=== PATIENT | male | born 1970 | race African-American/Black ===

== ENCOUNTER 2018-01-22 17:16 | Observation (INO) ==
[2018-01-22] MEDS ORDERED: ASPIRIN 325 MG TABLET PO STA (20:10)
[2018-01-22 20:25] LABS: Basophils % 0.6 % (0.0-0.8); Eosinophils # 0.2 10*3/uL (0.0-0.87); Eosinophils % 3.8 % (0.00-10.9); Hematocrit 48.1 VOL% (42.0-52.0); Hemoglobin 15.9 GM/DL (14.0-18.0); Immature Granulocytes % 0.2 %; Immature Granulocytes Absolute 0.01 #; Lymphocytes # 2.4 10*3/uL (1.4-4.0); Lymphocytes % 47.6 % (21.2-54.2); Mean Corpuscular HGB Conc 33.1 GM/DL (32-36); Mean Corpuscular Hemoglobin 29 PG (27-34); Mean Corpuscular Volume 87.1 FL (87-102); Mean Platelet Volume 11.7 FL (9.6-12.0); Monocytes # 0.3 10*3/uL (0.11-0.8); Monocytes % 6.3 % (1.7-12.7); Neutrophils # 2.1 10*3/uL (1.4-7.4); Neutrophils % 41.5 % (38.7-73.9); Platelet Count 219 T/CUMM (130-400); Red Blood Count 5.52 MC/CUMM (3.8-5.5); Red Cell Distribution Width 13.3 % (9.3-17.3)
[2018-01-22] MEDS ORDERED: ASPIRIN 325 MG TABLET ONE (20:32)
[2018-01-22 20:43] LABS: Alanine Aminotransferase 33 U/L (16-61); Albumin 4.4 G/DL (3.4-5.0); Alkaline Phosphatase 106 U/L (45-117); Aspartate Amino Transferase 22 U/L (0-37); Bilirubin,Total < 0.39 MG/DL (0.2-1.0); Blood Urea Nitrogen 15 MG/DL (7-18); Calcium 9.6 MG/DL (8.5-10.1); Glucose 89 MG/DL (74-106); Osmolality,Calculated 274.7 MOS/KG (273-304); Potassium 4.2 MMOL/L (3.5-5.1); Sodium 138 MMOL/L (136-145); Total Protein 8.9 G/DL (6.4-8.3)
[2018-01-22 20:46] LABS: Amorphous Crystals,Urine Few /HPF (Few); Apearance,Urine CLEAR (Clear); Bilirubin,Urine Negative (Negative); Blood, Urine Negative (Negative); Glucose,Urine (UA) Negative (Negative); Granular Casts,Urine 1 /LPF (0-1); Ketones,Urine Negative (Negative); Mucus,Urine Occasional /LPF (Occasional); Nitrite,Urine Negative (Negative); Protein,Urine Negative; RBC,Urine <1 /HPF (0-4); Urine Color Straw (Yellow); Urine Specific Gravity 1.012 (1.001-1.035); Urine Urobilinogen < 2.0 EU/DL (0.2-1.0); WBC,Urine <1 /HPF (0-6)
[2018-01-22] MEDS ORDERED: ALUM/MAG/SIMETH/LIDO VISC 1:1 30 ML BOTTLE PO ONE (21:43)
[2018-01-22] MEDS ORDERED: ALUM/MAG/SIMETH/LIDO VISC 1:1 30 ML BOTTLE PO STA (21:45)
[2018-01-22] MEDS ORDERED: MORPHINE 4 MG/1 ML VIAL IV PRN (23:02)
[2018-01-22] MEDS ORDERED: NITROGLYCERIN SL 0.4 MG TABLET SL PRN (23:02)
[2018-01-22] MEDS ORDERED: ONDANSETRON 4 MG/2 ML VIAL IV PRN (23:02)
[2018-01-22] MEDS: ENOXAPARIN 40 MG/0.4 ML SYRINGE SUBCUT SCH (23:50)
[2018-01-23 00:01] LABS: Risk Ratio 2.52
[2018-01-23] MEDS: PANTOPRAZOLE 40 MG TABLET PO SCH (09:40)
[2018-01-23] MEDS: ASPIRIN EC 81 MG TABLET PO SCH (09:40)
[2018-01-23] MEDS: amLODIPine 10 MG TABLET PO SCH (09:40)
[2018-01-23] MEDS: DOCUSATE SODIUM 100 MG CAPSULE PO SCH ×2 (09:40→21:59)
[2018-01-23] MEDS: ENOXAPARIN 40 MG/0.4 ML SYRINGE SUBCUT SCH (22:00)
[2018-01-24] MEDS ORDERED: REGADENOSON 0.4 MG/5 ML SYRINGE IV ONE (01:00)
[2018-01-24 05:27] LABS: Basophils % 0.6 % (0.0-0.8); Eosinophils # 0.2 10*3/uL (0.0-0.87); Hematocrit 42.2 VOL% (42.0-52.0); Hemoglobin 14.7 GM/DL (14.0-18.0); Immature Granulocytes % 0.2 %; Immature Granulocytes Absolute 0.01 #; Lymphocytes # 2.4 10*3/uL (1.4-4.0); Lymphocytes % 49.9 % (21.2-54.2); Mean Corpuscular HGB Conc 34.8 GM/DL (32-36); Mean Corpuscular Hemoglobin 29 PG (27-34); Mean Corpuscular Volume 84.1 FL (87-102); Mean Platelet Volume 11.3 FL (9.6-12.0); Monocytes # 0.3 10*3/uL (0.11-0.8); Monocytes % 7.1 % (1.7-12.7); Neutrophils # 1.8 10*3/uL (1.4-7.4); Neutrophils % 37.2 % (38.7-73.9); Platelet Count 200 T/CUMM (130-400); Red Blood Count 5.02 MC/CUMM (3.8-5.5); Red Cell Distribution Width 13.3 % (9.3-17.3); White Blood Count 4.8 T/CUMM (4-12)
[2018-01-24 05:46] LABS: Calcium 8.9 MG/DL (8.5-10.1); Osmolality,Calculated 282.1 MOS/KG (273-304); Potassium 4.1 MMOL/L (3.5-5.1)
[2018-01-24 06:43] LABS: Eosinophils 4 % (0-10); Hypochromasia 2+; Lymphocytes 44 % (20-55); Platelet Estimate Adequate; Segmented Neutrophils 46 % (50-85); Total Cells Counted 100
[2018-01-24] MEDS: amLODIPine 10 MG TABLET PO SCH (10:36)
[2018-01-24] MEDS: PANTOPRAZOLE 40 MG TABLET PO SCH (10:36)
[2018-01-24] MEDS: ASPIRIN EC 81 MG TABLET PO SCH (10:36)
[2018-01-24] MEDS: DOCUSATE SODIUM 100 MG CAPSULE PO SCH (10:36)
[2018-01-24 12:35] VITALS: BP 115/78
== END 2018-01-24 15:06 | disposition home or self-care (01) ==
LOC: N.EDINP 17:16 → N.ED 17:16 → N.TELES 22:37
PROVIDERS: ADMIT Internal Medicine Cardiovascular Disease; ATTEND Internal Medicine Cardiovascular Disease

== ENCOUNTER 2019-09-14 09:17 | Inpatient (IN) ==
[~2019-09-14 09:17] MED LIST: ceFAZolin 1,000 MG in SYRINGE 1 EACH IV ONE
[2019-09-14] MEDS ORDERED: DIAZEPAM 5 MG TABLET PO ONE (09:34)
[2019-09-14] MEDS ORDERED: ceFAZolin 1,000 MG VIAL ONE (09:39)
[2019-09-14] MEDS ORDERED: DIAZEPAM 5 MG TABLET ONE (09:39)
[2019-09-14] MEDS ORDERED: LACTATED RINGERS 1,000 ML IV SCH (10:00)
[2019-09-14] MEDS ORDERED: TISSUE ADHESIVE 1 EACH APPLICATOR TOP ONE (17:46)
[2019-09-14] MEDS ORDERED: LIDOCAINE 2% 5 ML VIAL ONE (18:14)
[2019-09-14] MEDS ORDERED: SEVOFLURANE 1 UNIT/15 MINUTE INH ONE (18:14)
[2019-09-14] MEDS ORDERED: propofoL 200 MG/20 ML VIAL IV ONE (18:14)
[2019-09-14] MEDS ORDERED: MIDAZOLAM 2 MG/2 ML VIAL ONE (18:14)
[2019-09-14] MEDS ORDERED: fentaNYL 100 MCG/2 ML VIAL ONE (18:15)
[2019-09-14] MEDS ORDERED: ESMOLOL 100 MG/10 ML VIAL IV ONE (18:16)
[2019-09-14] MEDS ORDERED: ePHEDrine 50 MG/ML AMP ONE (18:16)
[2019-09-14] MEDS ORDERED: DEXAMETHASONE 4 MG/1 ML VIAL ONE (18:16)
[2019-09-14] MEDS ORDERED: ONDANSETRON 4 MG/2 ML VIAL ONE ×2 (18:16→18:22)
[2019-09-14] MEDS ORDERED: PHENYLEPHRINE 10 MG/1 ML VIAL IV ONE (18:17)
[2019-09-14] MEDS ORDERED: NEOSTIGMINE 10 MG/10 ML VIAL ONE (18:17)
[2019-09-14] MEDS ORDERED: LACTATED RINGERS 2,000 ML IV ONE (18:17)
[2019-09-14] MEDS ORDERED: ROCURONIUM 100 MG/10 ML VIAL IV ONE (18:17)
[2019-09-14] MEDS ORDERED: GLYCOPYRROLATE 0.4 MG/2 ML VIAL ONE (18:17)
[2019-09-14] MEDS ORDERED: SUCCINYLCHOLINE 200 MG/10 ML VIAL ONE (18:17)
[2019-09-14] MEDS ORDERED: HYDROmorphone 2 MG/1 ML VIAL ONE (18:22)
[2019-09-14] MEDS: HYDROmorphone 2 MG/1 ML VIAL IV PRN ×5 (18:25→20:32)
[2019-09-14] MEDS ORDERED: ONDANSETRON 4 MG/2 ML VIAL IV PRN ×2 (18:27→19:02)
[2019-09-14] MEDS ORDERED: ACETAMINOPHEN 325 MG TABLET PO PRN (19:02)
[2019-09-14] MEDS ORDERED: PROMETHAZINE 25 MG/1 ML VIAL IM PRN (19:02)
[2019-09-14] MEDS ORDERED: traZODone 50 MG TABLET PO PRN (19:02)
[2019-09-14] MEDS: LACTATED RINGERS 1,000 ML IV SCH (20:33)
[2019-09-15] MEDS: HYDROmorphone 2 MG/1 ML VIAL IV PRN ×4 (01:10→22:21)
[2019-09-15] MEDS: LACTATED RINGERS 1,000 ML IV SCH ×3 (04:11→22:22)
[2019-09-15 06:38] LABS: Basophils % 0.1 % (0.0-0.8); Hematocrit 39.4 VOL% (42.0-52.0); Immature Granulocytes % 0.4 %; Immature Granulocytes Absolute 0.04 #; Lymphocytes # 0.9 10*3/uL (1.4-4.0); Lymphocytes % 9.1 % (21.2-54.2); Mean Corpuscular Volume 88.3 FL (87-102); Mean Platelet Volume 11.2 FL (9.6-12.0); Monocytes % 5.3 % (1.7-12.7); Neutrophils % 85.1 % (38.7-73.9); Platelet Count 172 T/CUMM (130-400); Red Blood Count 4.46 MC/CUMM (3.8-5.5); Red Cell Distribution Width 13.9 % (9.3-17.3); White Blood Count 9.9 T/CUMM (4-12)
[2019-09-15 07:09] LABS: Calcium 8.4 MG/DL (8.5-10.1); Osmolality,Calculated 275.7 MOS/KG (273-304)
[2019-09-15] MEDS: PANTOPRAZOLE 40 MG VIAL IV SCH (10:44)
[2019-09-15] MEDS: amLODIPine 5 MG TABLET PO SCH (10:44)
[2019-09-15] MEDS: TAMSULOSIN 0.4 MG CAPSULE PO SCH (10:44)
[2019-09-15] MEDS: SERTRALINE 100 MG TABLET PO SCH (10:44)
[2019-09-15] MEDS: ENOXAPARIN 40 MG/0.4 ML SYRINGE SUBCUT SCH (20:55)
[2019-09-16] MEDS: HYDROmorphone 2 MG/1 ML VIAL IV PRN ×2 (04:43→10:13)
[2019-09-16 05:27] LABS: Basophils % 0.4 % (0.0-0.8); Eosinophils # 0.2 10*3/uL (0.0-0.87); Eosinophils % 2.5 % (0.00-10.9); Hematocrit 37.5 VOL% (42.0-52.0); Hemoglobin 12.7 GM/DL (14.0-18.0); Immature Granulocytes % 0.1 %; Immature Granulocytes Absolute 0.01 #; Lymphocytes # 1.8 10*3/uL (1.4-4.0); Lymphocytes % 26.6 % (21.2-54.2); Mean Corpuscular HGB Conc 33.9 GM/DL (32-36); Mean Corpuscular Volume 86.8 FL (87-102); Monocytes % 7.6 % (1.7-12.7); Neutrophils % 62.8 % (38.7-73.9); Platelet Count 143 T/CUMM (130-400); Red Blood Count 4.32 MC/CUMM (3.8-5.5); White Blood Count 6.7 T/CUMM (4-12)
[2019-09-16 05:48] LABS: Calcium 8.5 MG/DL (8.5-10.1); Osmolality,Calculated 272.7 MOS/KG (273-304)
[2019-09-16] MEDS: LACTATED RINGERS 1,000 ML IV SCH ×2 (07:25→18:40)
[2019-09-16] MEDS: SERTRALINE 100 MG TABLET PO SCH (08:54)
[2019-09-16] MEDS: TAMSULOSIN 0.4 MG CAPSULE PO SCH (08:54)
[2019-09-16] MEDS: PANTOPRAZOLE 40 MG VIAL IV SCH (08:54)
[2019-09-16] MEDS: amLODIPine 5 MG TABLET PO SCH (08:54)
[2019-09-16] MEDS: ENOXAPARIN 40 MG/0.4 ML SYRINGE SUBCUT SCH (20:31)
[2019-09-17] MEDS: LACTATED RINGERS 1,000 ML IV SCH (01:41)
[2019-09-17] MEDS: TAMSULOSIN 0.4 MG CAPSULE PO SCH (10:00)
[2019-09-17] MEDS: SERTRALINE 100 MG TABLET PO SCH (10:00)
[2019-09-17] MEDS: PANTOPRAZOLE 40 MG VIAL IV SCH (10:01)
[2019-09-17] MEDS: amLODIPine 5 MG TABLET PO SCH (10:01)
[2019-09-17 17:06] VITALS: BP 133/93
== END 2019-09-17 17:35 | disposition home or self-care (01) | DRG 392 ==
LOC: N.OR 09:17 → N.SDSINP 09:19 → N.3E 17:59
PROVIDERS: ADMIT Student in an Organized Health Care Education/Training Program; ATTEND Student in an Organized Health Care Education/Training Program